=== PATIENT | female | born 1990 | race Caucasian/White ===

== ENCOUNTER 2017-04-02 21:32 | Emergency (ER) | payer BC ==
[2017-04-02 21:38] VITALS: RESP 16; TEMP 98.1; O2SAT 96
--- NOTE | 2017-04-02 21:57 | EDPHY ---
H & P Stated Complaint: L neck pain with left face mild numbness intermittent x1 week HPI/ROS: HPI CHIEF COMPLAINT: Left arm, left neck pain intermittently HISTORY OF PRESENT ILLNESS: This patient very pleasant 26-year-old female denies any significant medical history no history of PE or DVT no history of heart disease, she presents emergency room she tells me over the last 3-4 weeks she has had intermittent left arm pain left neck swelling. She is concerned she may have a clot in her arm or her neck. She has never had a DVT before. She did have surgery on her left arm remotely from trauma. She states since her trauma remotely she has had ongoing left arm pain and some intermittent swelling. She is from [place] she just moved here to [place] last month. Her mom is an RN she was explaining her symptoms her mom mom recommended to come to the emergency room for evaluation. She has no local primary care doctor. She denies chest pain, shortness of breath, pleuritic pain. Denies hemoptysis. Patient distally tells me that she has been doing a lot hiking with a backpack she noticed that when she wears the backpack it does cause her some left shoulder pain and neck pain. Where the strap goes over the trapezius. Past Medical History: No medical history Past Surgical History: Left arm surgery Social History: Denies daily use drugs alcohol tobacco products, moved here from [place] 3-4 weeks ago. Family History: Noncontributory ROS REVIEW OF SYSTEMS: A comprehensive 10 point review of systems is otherwise negative aside from elements mentioned in the history of present illness. Exam Constitutional appears well nontoxic, triage nursing summary reviewed, vital signs reviewed, awake/alert. Eyes normal conjunctivae and sclera, EOMI, PERRLA. HENT neck exam no asymmetrical swelling. No carotid bruit on exam. No significant tenderness. No significant swelling is noted. normal inspection, atraumatic, moist mucus membranes, no epistaxis, neck supple/ no meningismus, no raccoon eyes. Respiratory clear to auscultation bilaterally, normal breath sounds, no respiratory distress, no wheezing. Cardiovascular rate normal, regular rhythm, no murmur, no edema, distal pulses normal. Gastrointestinal soft, non-tender, no rebound, no guarding, normal bowel sounds, no distension, no pulsatile mass. Genitourinary no CVA tenderness. Musculoskeletal left upper extremity neurovascular intact. Good pulse. No significant swelling visualize. Left arm neurovascular intact no numbness or tingling. Warm extremity. Good cap refill. Good pulse. no midline vertebral tenderness, full range of motion, no calf swelling, no tenderness of extremities , no meningismus, good pulses, neurovascularly intact. Skin pink, warm, & dry, no rash, skin atraumatic. Neurologic awake, alert and oriented x 3, AAOx3, moves all 4 extremities equally, motor intact, sensory intact, CN II-XII intact, normal cerebellar, normal vision, normal speech. Psychiatric normal mood/affect. Heme/Lymph/Immune no lymphadenopathy. Differential Diagnosis: Includes but is not limited to in a particular order, DVT, musculoskeletal pain. Medical Decision Making: Plan for this patient basic blood work including D- dimer, left upper extremity ultrasound. Re-evaluation: 2304: Left upper extremity ultrasound reported to me is negative for DVT. Piyush Joiner read the report. Blood work is pending at this time Source: Patient - Personal History LMP (Females 10-55): 8-14 Days Ago Current Tetanus/Diphtheria Vaccine: Unsure - Medical/Surgical History Hx Asthma: No Hx Chronic Respiratory Disease: No Hx Diabetes: No Hx Cardiac Disease: No Hx Renal Disease: No Hx Cirrhosis: No Hx Alcoholism: No Hx HIV/AIDS: No Hx Splenectomy or Spleen Trauma: No Other PMH: L arm fx without surgery, back injury - Social History Smoking Status: Former smoker Constitutional: Initial Vital Signs Temperature (C) 36.7 C 04/02/17 21:35 Heart Rate 86 04/02/17 21:35 Respiratory Rate 16 04/02/17 21:35 Blood Pressure 122/94 H 04/02/17 21:35 O2 Sat (%) 96 04/02/17 21:35 O2 Delivery Mode Room Air Allergies/Adverse Reactions: sulfamethoxazole [From Bactrim] Allergy (Verified 04/02/17 21:35) trimethoprim [From Bactrim] Allergy (Verified 04/02/17 21:35) Home Medications: Medication Instructions Recorded NK [No Known Home Meds] 04/02/17 Medical Decision Making - Diagnostics Imaging Results: Imaging Impressions Extremity Venous Study 04/02/17 22:05 Impression: No deep venous thrombosis left upper extremity.. Results called to Dr. Cortes at 11:00 PM. Departure - Departure Disposition: Home, Routine, Self-Care Clinical Impression: Neck pain Condition: Good Instructions: Neck Pain (ED) Additional Instructions: 1. Recommend ice. 2. Take anti-inflammatory pain medicine. 3. Return emergency room if you have any worsening symptoms includes severe neck pain, chest pain, shortness of breath. Significant swelling. 4. Limit the use of a book bag on her neck and trapezius muscle. This may be causing her pain.
[2017-04-02 23:11] LABS: % IMMATURE GRANULYOCYTES 0.3 % (0.0-1.1); ABSOLUTE IMMATURE GRANULOCYTES 0.02 10^3/uL (0.00-0.10); ADD DIFF? NO; ADD MORPH? NO; ADD SCAN? NO; ATYPICAL LYMPHOCYTE FLAG 40 (0-99); FRAGMENT RBC FLAG 0 (0-99); HEMOGLOBIN 12.6 g/dL (12.6-16.3); LEFT SHIFT FLG 0 (0-99); LIPEMIA HEMOLYSIS FLAG 80 (0-99); MEAN CELL HEMOGLOBIN 28.4 pg (27.9-34.1); MEAN CELL HEMOGLOBIN CONCENTR. 33.2 g/dL (32.4-36.7); MEAN CELL VOLUME 85.8 fL (81.5-99.8); MEAN PLATELET VOLUME 9.5 fL (8.7-11.7); PLATELET CLUMPS FLAG 0 (0-99); PLATELET COUNT 269 10^3/uL (150-400); RED BLOOD CELL COUNT 4.43 10^6/uL (4.18-5.33); RED CELL DISTRIBUTION WIDTH 13.9 % (11.5-15.2)
[2017-04-02 23:23] LABS: ANION GAP 11 mEq/L (8-16); CALCIUM 9.2 mg/dL (8.5-10.4); CARBON DIOXIDE 23 mEq/l (22-31); CHLORIDE 102 mEq/L (97-110); CREATININE 0.7 mg/dL (0.6-1.0); GLOMERULAR FILTRATION RATE > 60; GLUCOSE 97 mg/dL (70-100); POTASSIUM 3.5 mEq/L (3.5-5.2); SODIUM 136 mEq/L (134-144)
[2017-04-02 23:47] VITALS: BP 105/84; PULSE 59
== END 2017-04-02 23:46 | disposition home or self-care (01) ==
DX: M54.2 Cervicalgia (principal); Z87.891 Personal history of nicotine dependence